=== PATIENT | female | born 1995 | race Caucasian/White ===

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

== ENCOUNTER 2017-01-02 19:59 | Emergency (ER) | payer OTHER ==
[2017-01-02 20:31] LABS: PH,URINE 6.5 (5.0 - 9.0); URINE BACTERIA TRACE (NONE SEEN); URINE BILIRUBIN NEGATIVE (NEGATIVE); URINE BLOOD NEGATIVE (NEGATIVE); URINE GLUCOSE (UA) NORMAL (NORMAL); URINE KETONE NEGATIVE (NEGATIVE); URINE LEUKOCYTE ESTERASE 1+ (NEGATIVE); URINE NITRATE NEGATIVE (NEGATIVE); URINE PROTEIN NEGATIVE (NEGATIVE); URINE RBC 0-5 /[HPF] (0-2); URINE SQUAMOUS EPITHELIAL CELL 15-20 /[HPF] (NONE SEEN); UROBILINOGEN NORMAL mg/dL (<1.0)
[2017-01-02 20:35] LABS: BASO % 0.3 % (0.1-1.2); EOS # 0.2 10_X3_uL (0.0-0.4); EOS % 1.9 % (0.7-5.8); GRAN # 5.6 10_X3_uL (1.6-6.1); GRAN % 62.5 % (34.0-71.1); HEMATOCRIT 35.5 % (34-45); HEMOGLOBIN 11.8 g/dL (11.2-15.7); LYMPH # 2.6 10_X3_uL (1.2-3.7); LYMPH % 29.2 % (19.3-51.7); MEAN CORPUSCULAR HEMOGLOBIN 24.6 pg (27.0-33.0); MEAN CORPUSCULAR HGB CONC 33.2 g/dL (32.0-36.0); MEAN CORPUSCULAR VOLUME 74.1 fL (79-95); MEAN PLATELET VOLUME 10.6 fl (7.5-11.5); MONO # 0.6 10_X3_uL (0.2-0.9); MONO % 6.1 % (4.7-12.5); PLATELET COUNT 308 x10_3/uL (182-369); RED BLOOD COUNT 4.79 x10_6/uL (3.9-5.2); RED CELL DISTRIBUTION WIDTH 14.4 % (11.7-14.4)
[2017-01-02 20:51] LABS: ALBUMIN 3.9 gm/dL (3.4-5.0); ALKALINE PHOSPHATASE 103 U/L (50-136); ALT/SGPT 11 U/L (3.5-33.9); AST/SGOT 13 U/L (7.04-26.96); BLOOD UREA NITROGEN 9 mg/dL (7-18); CALCIUM 9.1 mg/dL (8.7-10.7); CARBON DIOXIDE 22 mmol/L (21-32); CREATININE 0.9 mg/dL (0.6-1.3); GLUCOSE,RANDOM 107 mg/dL (70-99); SODIUM 137 mmol/L (136-145); TOTAL PROTEIN 6.1 gm/dL (6.4-8.2)
[2017-01-02 20:52] LABS: BILIRUBIN,TOTAL < 0.15 mg/dL (0.0-1.0)
== END 2017-01-02 21:10 | disposition home or self-care (01) ==
LOC: ER 19:59
PROVIDERS: General Practice
DX: O26.891 Other specified pregnancy related conditions, first trimester (principal); Z3A.01 Less than 8 weeks gestation of pregnancy; R10.9 Unspecified abdominal pain
CPT/HCPCS: 36415; 80053; 81001; 85025; 99070; 99283